=== PATIENT | female | born 1975 | race Caucasian/White ===

== ENCOUNTER 2016-12-13 15:00 | Emergency (ER) | payer OTHER | END 2016-12-13 16:41 | disposition home or self-care (01) | LOC: ER 15:00 | DX: G43.909 Migraine, unspecified, not intractable, without status migrainosus (principal); G40.909 Epilepsy, unspecified, not intractable, without status epilepticus; Z79.899 Other long term (current) drug therapy; Z88.5 Allergy status to narcotic agent; Z88.6 Allergy status to analgesic agent; Z88.8 Allergy status to other drugs, medicaments and biological substances | CPT/HCPCS: 96374; 96375; J1100; J1885; J2765 ==

== ENCOUNTER 2017-02-09 19:06 | Emergency (ER) | payer OTHER | END 2017-02-09 21:30 | disposition home or self-care (01) | LOC: ER 19:06 | DX: R10.9 Unspecified abdominal pain (principal); F32.9 Major depressive disorder, single episode, unspecified; F41.9 Anxiety disorder, unspecified; E66.9 Obesity, unspecified; Z90.710 Acquired absence of both cervix and uterus; Z79.899 Other long term (current) drug therapy; Z88.5 Allergy status to narcotic agent; Z88.6 Allergy status to analgesic agent; Z88.8 Allergy status to other drugs, medicaments and biological substances; Z68.31 Body mass index [BMI] 31.0-31.9, adult | CPT/HCPCS: 36415; 96374; 96375; 96376; J1885 ==